=== PATIENT | female | born 1945 | race Caucasian/White ===

== ENCOUNTER 2023-12-20 13:53 | Outpatient (RCR) | payer MEDICARE, SELFPAY | END 2024-05-20 13:57 | disposition home or self-care (01) | LOC: HO.WCC 13:53 | PROVIDERS: PCP Internal Medicine Endocrinology, Diabetes & Metabolism; Visit Provider Physician Assistant | DX: I87.311 Chronic venous hypertension (idiopathic) with ulcer of right lower extremity (principal); L97.812 Non-pressure chronic ulcer of other part of right lower leg with fat layer exposed | CPT/HCPCS: 11042; 15271; 99212; Q4158 ==